=== PATIENT | female | born 1970 | race Caucasian/White ===

== ENCOUNTER → 2020-07-11 | Outpatient (CLI) | payer BC ==
--- NOTE | 2020-07-12 13:35 | NM ---
EXAMINATION TYPE: NM thyroid image w uptake DATE OF EXAM: 07/12/2020 COMPARISON: NONE HISTORY: Hyperthyroidism TECHNIQUE: Thyroid iodine uptake is calculated and images performed after the oral administration of 304 uCi 1-123 Capsule. FINDINGS: There is nonuniform distribution of activity throughout the gland, with areas of increased uptake bilaterally. The 4 hour iodine uptake is calculated at 7.2% (normal range 8-14%). The 24-hour iodine uptake is calculated at 17.3% (normal range 15-35%). IMPRESSION: 1. Inhomogenous tracer distribution with hot nodules. Findings likely represent multinodular goiter. 2. Radioactive iodine uptake at lower limits of normal.
== END | disposition home or self-care (01) ==
LOC: RADNMMAIN 08:55
PROVIDERS: ATTEND Family Medicine
DX: E04.1 Nontoxic single thyroid nodule (principal)
CPT/HCPCS: 78014; A9516

== ENCOUNTER → 2021-05-07 | Outpatient (CLI) | payer BC ==
--- NOTE | 2021-05-08 10:01 | ECHOF ---
Referral Reason:[id number] dizziness, R94.31 abnormal EKG MEASUREMENTS -------- HEIGHT: 165.1 cm WEIGHT: 79.4 kg BP: RVIDd: 3.0 cm (< 3.3) IVSd: 1.1 cm (0.6 - 1.1) LVIDd: 3.9 cm (3.9 - 5.3) LVPWd: 1.2 cm (0.6 - 1.1) IVSs: 1.6 cm LVIDs: 2.7 cm LVPWs: 1.6 cm LAESV Index (A-L): 25.35 ml/m Ao Diam: 2.7 cm (2.0 - 3.7) AV Cusp: 1.9 cm (1.5 - 2.6) LA Diam: 3.9 cm (2.7 - 3.8) MV EXCURSION: 19.315 mm (> 18.000) MV EF SLOPE: 65 mm/s (70 - 150) EPSS: 0.1 cm MV E Elvis: 0.75 m/s MV DecT: 200 ms MV A Elvis: 0.90 m/s MV E/A Ratio: 0.84 RAP: 5.00 mmHg RVSP: 28.75 mmHg FINDINGS -------- Sinus rhythm. This was a technically adequate study. The left ventricular size is normal. There is borderline concentric left ventricular hypertrophy. Overall left ventricular systolic function is normal with, an EF between 55 - 60 %. The diastolic filling pattern is normal for the age of the patient 10.71. The right ventricle is normal in size. Normal LA size by volume 22+/-6 ml/m2. The right atrial size is normal. Interatrial and interventricular septum intact. The aortic valve is trileaflet, and appears structurally normal. No aortic stenosis or regurgitation. The mitral valve is normal. No mitral regurgitation. The tricuspid valve appears structurally normal. Trace tricuspid regurgitation present. Right judith tricular systolic pressure is normal at < 35 mmHg. The right ventricular systolic pressure, as lisseth ured by Doppler, is 28.75mmHg. There is no pulmonic regurgitation present. The aortic root size is normal. Normal inferior vena cava with normal inspiratory collapse consistent with estimated right atrial pre ssure of 5 mmHg. Echo free space may represent effusion or a pericardial fat pad. There is no pericardial effusion. CONCLUSIONS -------- 1. There is borderline concentric left ventricular hypertrophy. 2. Overall left ventricular systolic function is normal with, an EF between 55 - 60 %. 3. Normal LA size by volume 22+/-6 ml/m2. 4. The aortic valve is trileaflet, and appears structurally normal. No aortic stenosis or regurgitati on. 5. Trace tricuspid regurgitation present. PUBLIC HEALTH ENGINEER: Trinity Tenorio RDCS
== END | disposition home or self-care (01) ==
LOC: RADECHMAIN 13:53
PROVIDERS: ATTEND Family Medicine
DX: I07.1 Rheumatic tricuspid insufficiency (principal)
CPT/HCPCS: 93306

== ENCOUNTER → 2021-05-11 | Outpatient (CLI) | payer BC ==
--- NOTE | 2021-05-11 21:16 | MR ---
EXAMINATION TYPE: MR brain and iac wo/w con DATE OF EXAM: 05/11/2021 COMPARISON: None HISTORY: Vertigo and right sided hearing loss CONTRAST: Performed utilizing 7.5 mL intravenous Gadavist gadolinium contrast. TECHNIQUE: Multiplanar, multiecho imaging on a 3.0 Lolly magnet is performed through the brain. Atte ntion is paid to the internal auditory canals with thin section imaging. Postcontrast imaging is per formed through the internal auditory canals. FINDINGS:Craniovertebral junction is normal. The pituitary is normal. Diffusion-weighted imaging is performed. No suspicious hyperintensity is present to suggest an acute intracranial infarct or acute ischemic area. Signal within the brain is normal.. Thin section imaging is performed through the internal auditory canals and cerebellar pontine angles. No cerebellar pontine angle masses are evident. The internal auditory canals appear normal without expansion or erosion. Postcontrast imaging was performed. No suspicious enhancement is evident within the internal audito ry canals or the included portions of the brain. IMPRESSIONS: 1. Normal internal auditory canals. 2. No suspicious abnormality to account for dizziness or hearing loss.
== END | disposition home or self-care (01) ==
LOC: RADMRIMAIN 07:28
PROVIDERS: ATTEND Family Medicine
DX: R42 Dizziness and giddiness (principal); H91.91 Unspecified hearing loss, right ear
CPT/HCPCS: 70553; A9585

== ENCOUNTER → 2021-05-23 | Outpatient (CLI) | payer BC ==
--- NOTE | 2021-05-23 10:54 | US ---
EXAMINATION TYPE: US liver DATE OF EXAM: 05/23/2021 COMPARISON: US 03/06/16 CLINICAL HISTORY: 51-year-old female Abnormal liver function R94.5. EXAM MEASUREMENTS: Liver Length: 15.3 cm Gallbladder Wall: 0.2 cm CBD: 5.8 mm Right Kidney: 12.2 x 5.9 x 4.3 cm Pancreas: Tail obscured by overlying bowel gas Liver: Partially Obscured by overlying bowel gas. Visualized portions show no gross abnormal quality . Gallbladder: No stones seen. No abnormal distention, wall thickening, or pericholecystic fluid. Evidence for sonographic Pérez's sign: No CBD: wnl Right Kidney: No hydronephrosis. Rand Cementer notes: Note of extrahepatic fat anteriorly IMPRESSION: 1. Bile duct upper limits of normal in caliber at 5.8 mm. Follow-up as clinically indicated. 2. Some limitations due to bowel gas shadowing and patient body habitus. 3. No gallstones. 4. No discrete abnormality of the visualized portions of the liver.
== END | disposition home or self-care (01) ==
LOC: RADUSWWP 07:01
PROVIDERS: ATTEND Family Medicine
DX: R94.5 Abnormal results of liver function studies (principal)
CPT/HCPCS: 76705

== ENCOUNTER 2023-04-20 19:49 | Observation (INO) | payer BC ==
[2023-04-20] MEDS ORDERED: SODIUM CHLORIDE 0.9% 1,000 ML IV STA (22:05)
--- NOTE | 2023-04-20 22:30 | ED ---
Nausea/Vomiting/Diarrhea HPI - General Chief complaint: Nausea/Vomiting/Diarrhea Stated complaint: Vomiting Time Seen by Provider: 04/20/23 22:07 Source: patient Mode of arrival: ambulatory Limitations: no limitations - History of Present Illness Initial comments: 53-year-old female with past medical history of alcohol abuse presents to the emergency department reporting hematemesis. States that she started vomiting blood yesterday. Has had 2 episodes per day. States it is coffee ground. No history of similar. Does admit to drinking a pint of alcohol a day. Last drink was yesterday evening before bedtime around 10 PM. She denies history of esophageal varices and ulcers. Does not take any blood thinners. Denies any abdominal pain. Does admit to dark stools. No history of EGDs. No other alleviating, precipitating or modifying factors - Related Data Home Medications Medication Instructions Recorded Confirmed Meclizine [Antivert] 12.5 mg PO BID PRN 03/06/16 04/25/23 Levothyroxine Sodium [Levoxyl] 100 mcg PO DAILY 04/20/23 04/25/23 atenoloL [Tenormin] 25 mg PO DAILY 04/20/23 04/25/23 Cholecalciferol [Vitamin D3 (25 50 mcg PO HS 04/25/23 04/25/23 Mcg = 1000 Iu)] Folic Acid 0.4 mg PO HS 04/25/23 04/25/23 Pantoprazole [Protonix] 40 mg PO HS 04/25/23 04/25/23 Thiamine [Vitamin B-1] 100 mg PO HS 04/25/23 04/25/23 Allergies Allergy/AdvReac Type Severity Reaction Status Date / Time No Known Allergies Allergy Verified 04/25/23 17:40 Review of Systems ROS Statement: Those systems with pertinent positive or pertinent negative responses have been documented in the HPI. ROS Other: All systems not noted in ROS Statement are negative. Past Medical History Past Medical History: Hypertension, Thyroid Disorder History of Any Multi-Drug Resistant Organisms: None Reported Additional Past Surgical History / Comment(s): cleft, rhinoplasty Past Psychological History: No Psychological Hx Reported, Anxiety, Depression Smoking Status: Never smoker Past Alcohol Use History: Daily Past Drug Use History: None Reported, Marijuana General Exam Limitations: no limitations General appearance: alert, anxious Head exam: Present: atraumatic, normocephalic, normal inspection Eye exam: Present: normal appearance, PERRL, EOMI. Absent: scleral icterus, conjunctival injection, periorbital swelling ENT exam: Present: normal exam, mucous membranes moist Neck exam: Present: normal inspection. Absent: tenderness, meningismus, lymphad enopathy Respiratory exam: Present: normal lung sounds bilaterally. Absent: respiratory distress, wheezes, rales, rhonchi, stridor Cardiovascular Exam: Present: regular rate, normal rhythm, normal heart sounds. Absent: systolic murmur, diastolic murmur, rubs, gallop, clicks GI/Abdominal exam: Present: soft, normal bowel sounds. Absent: distended, tenderness, guarding, rebound, rigid Extremities exam: Present: normal inspection, full ROM, normal capillary refill. Absent: tenderness, pedal edema, joint swelling, calf tenderness Back exam: Present: normal inspection Neurological exam: Present: alert, oriented X3, CN II-XII intact Psychiatric exam: Present: normal affect, normal mood Skin exam: Present: warm, dry, intact, normal color. Absent: rash Course Vital Signs 04/20/23 04/21/23 04/21/23 19:54 00:12 03:14 Temperature 99.1 F Pulse Rate 80 64 64 Respiratory 18 20 20 Rate Blood Pressure 152/90 146/85 137/81 O2 Sat by Pulse 96 97 95 Oximetry 04/21/23 04/21/23 04/21/23 05:53 07:35 08:14 Temperature 98.0 F Pulse Rate 57 L 74 63 Respiratory 17 18 18 Rate Blood Pressure 111/70 137/78 134/76 O2 Sat by Pulse 95 98 97 Oximetry 04/21/23 10:19 Temperature Pulse Rate 59 L Respiratory 18 Rate Blood Pressure 121/76 O2 Sat by Pulse 96 Oximetry Medical Decision Making - Medical Decision Making Was pt. sent in by a medical professional or institution (, PA, MOLECULAR BIOLOGIST, urgent care, hospital, or correction...) When possible be specific @ -No Did you speak to anyone other than the patient for history (EMS, parent, family, police, friend...)? What history was obtained from this source @ -No Did you review nursing and triage notes (agree or disagree)? Why? @ -I reviewed and agree with nursing and triage notes Were old charts reviewed (outside hosp., previous admission, EMS record, old EKG, old radiological studies, urgent care reports/EKG's, correction records)? Report findings @ -No old charts were reviewed Differential Diagnosis (chest pain, altered mental status, abdominal pain women, abdominal pain men, vaginal bleeding, weakness, fever, dyspnea, syncope, headache, dizziness, GI bleed, back pain, seizure, CVA, palpatations, mental health, musculoskeletal)? @ -Differential GI Bleed: Esophageal varices, aortoenteric fistula, Monique-Bartholomew, gastritis, peptic ulcer disease, diverticulosis, inflammatory bowel disease, hemorrhoids, fissure, colitis, malignancy, Meckels diverticulum, this is not meant to be an all- inclusive list. EKG interpreted by me (3pts min.). @ -Not completed X-rays interpreted by me (1pt min.). @ -None done CT interpreted by me (1pt min.). @ -None done U/S interpreted by me (1pt. min.). @ -None done What testing was considered but not performed or refused? (CT, X-rays, U/S, labs)? Why? @ -None What meds were considered but not given or refused? Why? @ -None Did you discuss the management of the patient with other professionals (professionals i.e. , PA, MOLECULAR BIOLOGIST, lab, RT, psych nurse, social work therapist, cover remover, teacher, homicide squad commanding officer, case worker)? Give summary @ -Spoke with alpa from [facility] who agreed to admit patient Was smoking cessation discussed for >3mins.? @ -No Was critical care preformed (if so, how long)? @ -No Were there social determinants of health that impacted care today? How? (Homelessness, low income, unemployed, alcoholism, drug addiction, transportation, low edu. Level, literacy, decrease access to med. care, residential, rehab)? @ -Patient drinks alcohol daily which likely contributes to her upper GI bleed Was there de-escalation of care discussed even if they declined (Discuss DNR or withdrawal of care, Hospice)? DNR status @ -No What co-morbidities impacted this encounter? (DM, HTN, Smoking, COPD, CAD, Cancer, CVA, ARF, Chemo, Hep., AIDS, mental health diagnosis, sleep apnea, morbid obesity)? @ -None Was patient admitted / discharged? Hospital course, mention meds given and route, prescriptions, significant lab abnormalities, going to OR and other pertinent info. @ -Upon arrival patient is placed into room 6. A thorough history and physical exam was performed. IV access is established and laboratory studies are conducted and reviewed. I did complete a rectal exam however adequate stool not obtained. Glucose 73. AST and ALTs are elevated. Hemoglobin is 14.6. She was given a dose of Protonix. Recommended admission for GI consultation for which the patient was agreeable. She has not had any episodes of hematemesis in the emergency department. She is placed on [facility] protocol. Spoke with Alpa for admission Undiagnosed new problem with uncertain prognosis? @ -Yes Drug Therapy requiring intensive monitoring for toxicity (Heparin, Nitro, Insulin, Cardizem)? @ -No Were any procedures done? @ -No Diagnosis/symptom? @ -Acute hematemesis, daily alcohol abuse, acute hypoglycemia Acute, or Chronic, or Acute on Chronic? @ -Acute Uncomplicated (without systemic symptoms) or Complicated (systemic symptoms)? @ -Complicated Side effects of treatment? @ -No Exacerbation, Progression, or Severe Exacerbation? @ -No Poses a threat to life or bodily function? How? (Chest pain, USA, VT, pneumonia, PE, COPD, DKA, ARF, appy, cholecystitis, CVA, Diverticulitis, Homicidal, Suicidal, threat to staff... and all critical care pts) @ -Yes patient presents with upper GI bleed likely secondary to alcohol abuse - Lab Data Result diagrams: 04/22/23 05:33 04/22/23 05:33 Lab Results 04/20/23 04/20/23 04/20/23 Range/Units 22:36 22:36 22:36 WBC 5.8 (3.8-10.6) k/uL RBC 4.11 (3.80-5.40) m/uL Hgb 14.6 (11.4-16.0) gm/dL Hct 42.9 (34.0-46.0) % MCV 104.4 H (80.0-100.0) fL MCH 35.4 H (25.0-35.0) pg MCHC 33.9 (31.0-37.0) g/dL RDW 12.7 (11.5-15.5) % Plt Count 182 (150-450) k/uL MPV 9.1 Neutrophils % 64 % Lymphocytes % 26 % Monocytes % 6 % Eosinophils % 2 % Basophils % 1 % Neutrophils # 3.7 (1.3-7.7) k/uL Lymphocytes # 1.5 (1.0-4.8) k/uL Monocytes # 0.3 (0-1.0) k/uL Eosinophils # 0.1 (0-0.7) k/uL Basophils # 0.0 (0-0.2) k/uL Macrocytosis Slight Sodium 135 L (137-145) mmol/L Potassium 3.8 (3.5-5.1) mmol/L Chloride 99 (98-107) mmol/L Carbon Dioxide 20 L (22-30) mmol/L Anion Gap 16 mmol/L BUN 10 (7-17) mg/dL Creatinine 0.49 L (0.52-1.04) mg/dL Est GFR (CKD-EPI)AfAm >90 (>60 ml/min/1.73 sqM) Est GFR (CKD-EPI)NonAf >90 (>60 ml/min/1.73 sqM) Glucose 73 L (74-99) mg/dL Plasma Lactic Acid Krishan 1.4 (0.7-2.0) mmol/L Calcium 8.9 (8.4-10.2) mg/dL Total Bilirubin 2.9 H (0.2-1.3) mg/dL AST 305 H (14-36) U/L ALT 157 H (4-34) U/L Alkaline Phosphatase 75 (38-126) U/L Total Protein 8.4 H (6.3-8.2) g/dL Albumin 5.0 (3.5-5.0) g/dL Lipase 120 (23-300) U/L Serum Alcohol <10 mg/dL Disposition Clinical Impression: Upper GI bleed, Alcohol abuse Disposition: ADMITTED IP TO THIS [facility] Condition: Stable Is patient prescribed a controlled substance at d/c from ED?: No Time of Disposition: 00:46 Decision to Admit Reason: Admit from EC Decision Date: 04/21/23 Decision Time: 00:46
[2023-04-20] MEDS ORDERED: PANTOPRAZOLE 40 MG/10 ML VIAL IVP STA (22:36)
[2023-04-20 22:58] LABS: Basophils % (A) 1 %; Eosinophils # (A) 0.1 k/uL (0-0.7); Eosinophils % (A) 2 %; HCT 42.9 % (34.0-46.0); HGB 14.6 gm/dL (11.4-16.0); Lymphocytes # (A) 1.5 k/uL (1.0-4.8); Lymphocytes % (A) 26 %; MCH 35.4 pg (25.0-35.0); MCHC 33.9 g/dL (31.0-37.0); MCV 104.4 fL (80.0-100.0); Macrocytosis Slight; Mean Platelet Volume 9.1; Monocytes # (A) 0.3 k/uL (0-1.0); Monocytes % (A) 6 %; Neutrophils # (A) 3.7 k/uL (1.3-7.7); Neutrophils % (A) 64 %; Platelet Count 182 k/uL (150-450); RBC 4.11 m/uL (3.80-5.40); RDW 12.7 % (11.5-15.5); WBC 5.8 k/uL (3.8-10.6)
[2023-04-21 00:26] LABS: ALT 157 U/L (4-34); AST 305 U/L (14-36); African American GFR (CKD) >90 (>60 ml/min/1.73 sqM); Alcohol <10 mg/dL; Alkaline Phosphatase 75 U/L (38-126); Anion Gap 16 mmol/L; Blood Urea Nitrogen 10 mg/dL (7-17); Calcium 8.9 mg/dL (8.4-10.2); Carbon Dioxide 20 mmol/L (22-30); Chloride 99 mmol/L (98-107); Glucose 73 mg/dL (74-99); Lipase 120 U/L (23-300); Non-African American GFR(CKD) >90 (>60 ml/min/1.73 sqM); Potassium 3.8 mmol/L (3.5-5.1); Sodium 135 mmol/L (137-145); Total Bilirubin 2.9 mg/dL (0.2-1.3); Total Protein 8.4 g/dL (6.3-8.2)
[2023-04-21] MEDS ORDERED: ONDANSETRON 4 MG/2 ML VIAL IVP PRN (00:46)
[2023-04-21] MEDS ORDERED: NALOXONE 0.4 MG/ML 1 ML VIAL IV PRN (00:46)
[2023-04-21] MEDS ORDERED: THIAMINE 100 MG/ML 2 ML VIAL IM STA (00:53)
[2023-04-21] MEDS ORDERED: LORazepam 2 MG/ML INJ IV PRN ×2 (00:53)
[2023-04-21] MEDS: LORazepam 2 MG/ML INJ IV PRN ×2 (08:10→22:40)
[2023-04-21] MEDS ORDERED: PANTOPRAZOLE 40 MG/10 ML VIAL IV SCH (09:00)
--- NOTE | 2023-04-21 11:30 | P.CONS ---
History of Present Illness - Reason for Consult Consult date: 04/21/23 Upper GI bleed Requesting physician: Verna Bertrand - Chief Complaint vomiting blood - History of Present Illness This is a pleasant 53-year-old female who presented to the emergency department yesterday evening with complaints of vomiting blood for the past 2 days noemi [email or web address] States she vomited blood twice on Thursday and twice yesterday. Thursday she stated was bright red and then turned more of a dark to coffee-ground yesterday. States she's been nauseated for the last 3 days, decreased appetite. She has a long-standing history of alcohol abuse greater than 20 years. She states she drinks 1-2 pints a day. Last time she had alcohol was on Thursday. Patient also states she's been having some dark tarry stools over the last few days duration. Denies any previous history of GI bleed. Last EGD done about 20 years ago for dysphagia. Denies any anticoagulation or NSAID use. Denies any abdominal pain. Patient denies any knowledge of cirrhosis or being told she had liver disease. Past medical history includes hypertension and hypothyroidism. Admitting labs WBC 5.8 hemoglobin 14.6 hematocrit 42 platelet count 182,000 BUN 10 creatinine 0.49 total bilirubin 2.9 AST 305 ALT 157 alkaline phosphatase 75 serum alcohol less than 10 Review of Systems REVIEW OF SYSTEMS: CARDIOPULMONARY: No chest pain or shortness of breath. Gastrointestinal: No epigastric pain, no associated abdominal pain. Nausea and vomiting, hematemesis then coffee-ground emesis. Black tarry stool last 3-4 days duration. GENITOURINARY: No dysuria or hematuria. MUSCULOSKELETAL: Reports normal range of motion. SKIN: No rashes. No jaundice. ENDOCRINE: No chills, fevers. No excessive weight gain or loss. No polydipsia or polyuria. PSYCHIATRIC: Unremarkable. NEUROLOGY: No change in mental status. Denies dizziness, headache. ENT: Vision unremarkable. CONSTITUTIONAL: No recent weight loss. No fever, chills, night sweats. Past Medical History Past Medical History: Hypertension, Thyroid Disorder History of Any Multi-Drug Resistant Organisms: None Reported Additional Past Surgical History / Comment(s): cleft, rhinoplasty Past Psychological History: No Psychological Hx Reported, Anxiety, Depression Smoking Status: Never smoker Past Alcohol Use History: Daily Past Drug Use History: None Reported, Marijuana Medications and Allergies Home Medications Medication Instructions Recorded Confirmed Type Meclizine [Antivert] 12.5 mg PO BID PRN 03/06/16 04/20/23 History Levothyroxine Sodium [Levoxyl] 100 mcg PO DAILY 04/20/23 04/20/23 History atenoloL [Tenormin] 25 mg PO DAILY 04/20/23 04/20/23 History Allergies Allergy/AdvReac Type Severity Reaction Status Date / Time No Known Allergies Allergy Verified 04/20/23 22:25 Physical Exam Vitals: Vital Signs Temp Pulse Resp BP Pulse Ox 04/21/23 08:14 63 18 134/76 97 04/21/23 07:35 98.0 F 74 18 137/78 98 04/21/23 05:53 57 L 17 111/70 95 04/21/23 03:14 64 20 137/81 95 04/21/23 00:12 64 20 146/85 97 04/20/23 19:54 99.1 F 80 18 152/90 96 Intake and Output 04/20/23 04/21/23 04/21/23 22:59 06:59 14:59 Other: Weight 77.111 kg General appearance: The patient is alert, oriented, appears in no acute distress. HET: Head is normocephalic and atraumatic. Conjunctiva pink. Sclera anicteric. Neck: Supple without lymphadenopathy. Trachea midline. Heart: S1 S2. Regular rate and rhythm. Lungs: Clear to auscultation. Abdomen: Soft, nontender, nondistended with bowel sounds. No guarding or rigidity. Skin: No rashes. No jaundice. Extremities: Normal skin color and turgor. No pedal edema. Neurological: No focal deficits. Alert and oriented x3. Results CBC & Chem 7: 04/20/23 22:36 04/20/23 22:36 Labs: Abnormal Lab Results - Last 24 Hours (Table) 04/20/23 04/20/23 Range/Units 22:36 22:36 MCV 104.4 H (80.0-100.0) fL MCH 35.4 H (25.0-35.0) pg Sodium 135 L (137-145) mmol/L Carbon Dioxide 20 L (22-30) mmol/L Creatinine 0.49 L (0.52-1.04) mg/dL Glucose 73 L (74-99) mg/dL Total Bilirubin 2.9 H (0.2-1.3) mg/dL AST 305 H (14-36) U/L ALT 157 H (4-34) U/L Total Protein 8.4 H (6.3-8.2) g/dL Assessment and Plan (1) Upper GI bleed Narrative/Plan: 53-year-old female with long-standing history of alcohol abuse over 20 years presented with hematemesis and coffee-ground emesis for the last 2 days duration. Reporting 2 episodes per day. Initial hemoglobin stable at 14.6 repeat hemoglobin pending. Denies any anticoagulation or NSAID use. Need to consider possible esophageal varices, gastritis, esophagitis, peptic ulcer disease, AVM or other possible etiologies. Patient has been nothing by mouth and will proceed with EGD for further evaluation. Continue Protonix twice a day. Current Visit: Yes Status: Acute Code(s): K92.2 - GASTROINTESTINAL HEMORRHAGE, UNSPECIFIED SNOMED Code(s): 02728295 (2) Alcohol abuse Current Visit: Yes Status: Acute Code(s): F10.10 - ALCOHOL ABUSE, UNCOMPLICATED SNOMED Code(s): 64383335 Plan: 1. Keep nothing by mouth 2. Increase Protonix to 40 mg twice a day 3. Repeat CBC, transfuse for hemoglobin less than 7 4. Antiemetics as needed 5. Patient scheduled for EGD this afternoon, procedure discussed with patient including risks and benefits. Patient willing to proceed. 6. Discuss with patient importance of alcohol abstinence. Thank you for this consultation, we will continue to follow. Dr. Lata Pizarro I agree with the dictator's note, documented as a scribe by Armida Carlton.
--- NOTE | 2023-04-21 13:03 | US ---
EXAMINATION TYPE: US liver DATE OF EXAM: 04/21/2023 COMPARISON: EKG CLINICAL INDICATION: Female, 53 years old with history of elevated LFTS; elevated LFTS TECHNIQUE: Multiple sonographic images of the right upper quadrant are obtained. FINDINGS: EXAM MEASUREMENTS: Liver Length: 18.1 cm Gallbladder Wall: .3 cm CBD: .5 cm Right Kidney: 12.0 x 3.9 x 4.3 cm HYDROE[employer]ANT MAINTAINER NOTES: Pancreas: Limited and obscured by overlying bowel gas Liver: Increased attenuation Gallbladder: No stones seen Evidence for sonographic Pérez's sign: No CBD: wnl Right Kidney: No hydronephrosis or masses seen IMPRESSION: Mild hepatomegaly with increased attenuation likely related to hepatic steatosis versus hepatocellula r disease including hepatitis.
[2023-04-21] MEDS ORDERED: SODIUM CHLORIDE 0.9% 1,000 ML IV ONE (13:35)
[2023-04-21] MEDS ORDERED: PROPOFOL 10 MG/ML 20 ML VIAL IV ONE (13:41)
[2023-04-21] MEDS ORDERED: LIDOCAINE 2% INJ 20 MG/ML (2 ML VIAL) ONE (13:41)
--- NOTE | 2023-04-21 13:51 | P.PCN ---
Date of Procedure: 04/21/23 Procedure(s) Performed: BRIEF HISTORY: Patient is a 53-year-old, pleasant, white female admitted hospital after having an episode of hematemesis yesterday. Hemoglobin is 14 g/dL. History of heavy alcohol abuse of several years duration. Scheduled for an upper endoscopy to evaluate further.. PROCEDURE PERFORMED: Esophagogastroduodenoscopy with biopsy. PREOPERATIVE DIAGNOSIS: Acute upper GI bleed. IV sedation per anesthesia. PROCEDURE: After informed consent was obtained, the patient was brought into the endoscopy unit. IV sedation was administered by Anesthesia under continuous monitoring. Initially the Olympus GIF-140 video endoscope was inserted into the mouth. Esophagus intubated without any difficulty. It was gradually advanced into the stomach and duodenum and carefully examined. The bulb and mild duodenitis and the second part of the duodenum appeared normal. The scope at this time was withdrawn to the stomach, adequately insufflated with air, and upon careful examination, mucosa of the antrum, body, had patchy areas of erythema consistent with gastritis and biopsies were done from this area. Mucosa of the cardia and the fundus appeared normal. No gastric varices seen. The scope was then withdrawn into the esophagus. The GE junction was located at 39 cm from the incisors. There was an early stricture noted in the distal esophagus and this was dilated with the passage of the scope and there was some oozing noted at the site of dilation. There was a 2 superficial erosions in the distal esophagus consistent with LA grade B reflux esophagitis. The rest of the esophagus appeared normal. There were no esophageal varices and the patient tolerated the procedure well. IMPRESSION: 1. Distal esophageal stricture with LA grade B reflux esophagitis is post dilation with the passage of scope. 2. Mild antral gastritis and duodenitis. 2. No evidence of gastric or esophageal varices RECOMMENDATIONS: The findings of this examination were discussed with the patient as well as a family. She'll be continued on Protonix 40 mg twice daily. Diet will be advanced as tolerated..
[2023-04-21] MEDS: PANTOPRAZOLE 40 MG/10 ML VIAL IV SCH (19:48)
--- NOTE | 2023-04-22 02:52 | P.HPIM ---
History of Present Illness H&P Date: 04/21/23 Chief Complaint: blood in vomit Patient is a 53-year-old female with a known history of hypertension, hypothyroidism and daily alcohol use, anxiety/depression presents ER with complaints of blood in the vomit. Patient. 2 episodes yesterday which is bright red and also coffee-ground. No prior history of GI bleed. Patient does drink 1 pint of alcohol a day. Last drink was day prior to admission. Currently patient is not on any blood thinners. No complaints of abdominal pain. No prior history of EGDs. Denies any dark stools. No cough or sputum production. No chest pain. Ultrasound liver showed mild hepatomegaly with increased attenuation likely related to hepatic steatosis versus hepatocellular disease including hepatitis. Laboratory data showed WBC 5.8 hemoglobin 14.6 and platelets 12.7, sodium 135 potassium 3.8 chloride 99 bicarb is 20 BUN 10 and creatinine 0.49 Total bilirubin level is 2.9 AST 305 ALT 157 alk phos 75 and serum marker level is less than 10. Review of Systems Constitutional: Patient denies any fever or chills . no Generalized weakness. Abdomen: Patient patient nausea and blood in vomit. No abd. pain Cardiovascular: Patient denies any chest pain or short of breath no palpitations. Respiratory: patient denied any cough . no sputum production. No shortness of breath Neurologic: Patient denied any numbness or tingling headache. Musculoskeletal: Patient denies any complaints of joint swelling or deformity. Skin: Negative Psychiatric: Negative Endocrine: No heat or cold intolerance. No recent weight gain. Genitourinary: No dysuria or hematuria. All other 14 point ROS negative except the above Past Medical History Past Medical History: Hypertension, Thyroid Disorder History of Any Multi-Drug Resistant Organisms: None Reported Additional Past Surgical History / Comment(s): cleft, rhinoplasty Past Psychological History: No Psychological Hx Reported, Anxiety, Depression Smoking Status: Never smoker Past Alcohol Use History: Daily Past Drug Use History: None Reported, Marijuana Medications and Allergies Home Medications Medication Instructions Recorded Confirmed Type Meclizine [Antivert] 12.5 mg PO BID PRN 03/06/04/20/23 History Levothyroxine Sodium [Levoxyl] 100 mcg PO DAILY 04/20/23 04/20/23 History atenoloL [Tenormin] 25 mg PO DAILY 04/20/23 04/20/23 History Pantoprazole [Protonix] 40 mg PO DAILY #30 tab 04/22/23 Rx Thiamine [Vitamin B-1] 100 mg PO DAILY #30 tab 04/22/23 Rx chlordiazePOXIDE HCl [Librium] 10 mg PO TID 3 Days #6 capsule 04/22/23 Rx Allergies Allergy/AdvReac Type Severity Reaction Status Date / Time No Known Allergies Allergy Verified 04/20/23 22:25 Physical Exam Vitals: Vital Signs Temp Pulse Resp BP Pulse Ox 04/21/23 13:25 98.0 F 65 18 137/85 98 04/21/23 10:19 59 L 18 121/76 96 04/21/23 08:14 63 18 134/76 97 04/21/23 07:35 98.0 F 74 18 137/78 98 04/21/23 05:53 57 L 17 111/70 95 04/21/23 03:14 64 20 137/81 95 04/21/23 00:12 64 20 146/85 97 04/20/23 19:54 99.1 F 80 18 152/90 96 Intake and Output 04/20/23 04/21/23 04/21/23 22:59 06:59 14:59 Other: Weight 77.111 kg PHYSICAL EXAMINATION: Patient is lying in the bed comfortably, no acute distress, awake alert and oriented.. HEENT: Normocephalic. Neck is supple. Pupils reactive. Nostrils clear. Oral cavity is moist. Neck reveals no JVD, carotid bruits, or thyromegaly. CHEST EXAMINATION: Trachea is central. Symmetrical expansion. Lung amato clear to auscultation and percussion. CARDIAC: Normal S1, S2 with no gallops. No murmurs ABDOMEN: Soft. Bowel sounds present. Nontender. No organomegaly. No abdominal bruits. Extremities: reveal no edema. No clubbing or cyanosis Neurologically awake, alert, oriented x3 with well-coordinated movements. No focal deficits noted Skin: No rash or skin lesions. Psychiatric: Coperative. Nonsuicidal, Musculoskeletal: No joint swelling or deformity. Normal range of motion. Results CBC & Chem 7: 04/22/23 05:33 04/22/23 05:33 Labs: Abnormal Lab Results - Last 24 Hours (Table) 07/17/23 07/17/23 Range/Units 22:36 22:36 MCV 104.4 H (80.0-100.0) fL MCH 35.4 H (25.0-35.0) pg Sodium 135 L (137-145) mmol/L Carbon Dioxide 20 L (22-30) mmol/L Creatinine 0.49 L (0.52-1.04) mg/dL Glucose 73 L (74-99) mg/dL Total Bilirubin 2.9 H (0.2-1.3) mg/dL AST 305 H (14-36) U/L ALT 157 H (4-34) U/L Total Protein 8.4 H (6.3-8.2) g/dL Thrombosis Risk Factor Assmnt - DVT/VTE Prophylaxis DVT/VTE Prophylaxis: Mechanical Prophylaxis ordered Assessment and Plan Assessment: Hematemesis. Possible alcoholic gastritis. s/p egd distal esophageal stricture with LA grade B reflux esophagitis is post dilation with biopsies of scope. Mild antral gastritis and duodenitis. Nausea and vomiting. Hypovolemic hyponatremia Elevated liver enzymes/alcoholic hepatitis Hyperbilirubinemia Hepatic steatosis Macrocytosis likely due to alcohol abuse Daily alcohol use 1 pint per day DVT prophylaxis SCDs Plan: Patient will be continued on IV hydration Protonix IV push twice daily. Patient was seen by GI and recommends EGD. Patient is scheduled for EGD today. EGD showed distal esophageal stricture with LA grade B reflux esophagitis is post dilation with biopsies of scope. Mild antral gastritis and duodenitis. No evidence of gastric or esophageal varices. Continue to monitor H&H. Anticipate discharge in the next 24 hours multilingual improvement. Symptomatic management for nausea. Patient was counseled extensively for alcohol cessation. Monitor for alcohol withdrawal symptoms. Time with Patient: Greater than 30
[2023-04-22] MEDS ORDERED: SODIUM CHLORIDE 0.9% 1,000 ML IV SCH (03:00)
[2023-04-22 07:33] VITALS: BP 154/95; PULSE 67; RESP 16; TEMP 97.4
[2023-04-22] MEDS: PANTOPRAZOLE 40 MG/10 ML VIAL IV SCH (07:44)
[2023-04-22 08:46] LABS: Basophils # (A) 0.04 X 10*3/uL (0.00-0.10); Basophils % (A) 0.8 %; Eosinophils # (A) 0.06 X 10*3/uL (0.04-0.35); Eosinophils % (A) 1.2 %; HCT 38.4 % (37.2-46.3); Lymphocytes % (A) 26.1 %; MCH 34.2 pg (27.0-32.0); MCHC 33.9 d/dL (32.0-37.0); MCV 101.1 FL (80.0-97.0); Mean Platelet Volume 11.9 FL (9.5-12.2); Monocytes # (A) 0.45 X 10*3/uL (0.20-1.00); NRBC Per 100 WBC 0 X 10*3/uL (0.00-0.01); Neutrophils # (A) 3.12 X 10*3/uL (1.80-7.70); Neutrophils % (A) 62.7 %; Platelet Count 147 X 10*3/uL (140-440); RDW 12.4 % (11.5-14.5); WBC 4.98 X 10*3/uL (4.50-10.00)
[2023-04-22] MEDS ORDERED: THIAMINE 100 MG TAB PO SCH (09:00)
[2023-04-22 09:40] LABS: ALT 91 U/L (8-44); AST 125 U/L (13-35); Albumin 3.8 d/dL (3.8-4.9); Albumin/Globulin Ratio 1.81 Ratio (1.60-3.17); Alkaline Phosphatase 68 U/L (41-126); BUN/Creat Ratio 10.83 Ratio (12.00-20.00); Blood Urea Nitrogen 6.5 mg/dL (9.0-27.0); Calcium 8.4 mg/dL (8.7-10.3); Chloride 103 mmol/L (96-109); Globulin 2.1 d/dL (1.6-3.3); Glucose 109 mg/dL (70-110); Potassium 3.5 mmol/L (3.5-5.5); Sodium 139 mmol/L (135-145); Total Bilirubin 1.9 mg/dL (0.3-1.2); Total Protein 5.9 d/dL (6.2-8.2)
[2023-04-22] MEDS: LORazepam 2 MG/ML INJ IV PRN (13:07)
--- NOTE | 2023-04-22 14:33 | P.PN ---
Subjective Progress Note Date: 04/22/23 Principal diagnosis: Hematemesis This is a pleasant 53-year-old female who presented to the emergency department yesterday evening with complaints of vomiting blood for the past 2 days duration. States she vomited blood twice on Thursday and twice yesterday. Thursday she stated was bright red and then turned more of a dark to coffee-ground yesterday. States she's been nauseated for the last 3 days, decreased appetite. She has a long-standing history of alcohol abuse greater than 20 years. She states she drinks 1-2 pints a day. Last time she had alcohol was on Thursday. P atient also states she's been having some dark tarry stools over the last few days duration. Denies any previous history of GI bleed. Last EGD done about 20 years ago for dysphagia. Denies any anticoagulation or NSAID use. Denies any abdominal pain. Patient denies any knowledge of cirrhosis or being told she had liver disease. Past medical history includes hypertension and hypothyroidism. Admitting labs WBC 5.8 hemoglobin 14.6 hematocrit 42 platelet count 182,000 BUN 10 creatinine 0.49 total bilirubin 2.9 AST 305 ALT 157 alkaline phosphatase 75 serum alcohol less than 10 04/22/2023 Patient seen and examined today as a follow-up. Yesterday she underwent upper endoscopy with findings of distal esophageal stricture with only grade B reflux esophagitis post dilation with passage of scope. Mild antral gastritis and duodenitis. No evidence of gastric or esophageal varices. Today patient states she is feeling better. No nausea vomiting reported. No reports of any black stool. She is tolerating her diet. Hemoglobin stable at 13.0 Objective - Vital Signs Vital signs: Vital Signs Temp 97.4 F L 04/22/23 07:00 Pulse 67 04/22/23 07:00 Resp 16 04/22/23 07:00 BP 154/95 04/22/23 07:00 Pulse Ox 98 04/22/23 07:00 FiO2 Intake & Output 04/21/23 04/22/23 04/22/23 18:59 06:59 18:59 Intake Total 220 Balance 220 Weight 77.111 kg Intake: IV 100 Oral 120 Other: # Voids 0 2 - Exam General appearance: The patient is alert, oriented, appears in no acute distress. HET: Head is normocephalic and atraumatic. Conjunctiva pink. Sclera anicteric. Neck: Supple without lymphadenopathy. Abdomen: Soft, nontender, nondistended with bowel sounds. No guarding or rigidity. Extremities: Normal skin color and turgor. No pedal edema Skin: No rashes, no jaundice Neurological: No focal deficits. Alert and oriented. - Labs CBC & Chem 7: 04/22/23 05:33 04/22/23 05:33 Assessment and Plan (1) Upper GI bleed Narrative/Plan: 53-year-old female with long-standing history of alcohol abuse over 20 years presented with hematemesis and coffee-ground emesis for the last 2 days duration. Reporting 2 episodes per day. Initial hemoglobin stable at 14.6 repeat hemoglobin pending. Denies any anticoagulation or NSAID use. Need to consider possible esophageal varices, gastritis, esophagitis, peptic ulcer disease, AVM or other possible etiologies. Patient has been nothing by mouth and will proceed with EGD for further evaluation. Continue Protonix twice a day. She underwent upper endoscopy with findings of distal esophageal stricture with only grade B reflux esophagitis post dilation with passage of scope. Mild antral gastritis and duodenitis. No evidence of gastric or esophageal varices. We been asked pulmonary Bartholomew tear versus esophagitis. However no active bleeding or old blood noted. Status: Acute Code(s): K92.2 - GASTROINTESTINAL HEMORRHAGE, UNSPECIFIED SNOMED Code(s): 54183769 (2) Alcohol abuse Status: Acute Code(s): F10.10 - ALCOHOL ABUSE, UNCOMPLICATED SNOMED Code(s): 40691229 (3) Esophageal stricture Status: Acute Code(s): K22.2 - ESOPHAGEAL OBSTRUCTION SNOMED Code(s): 26802907 Plan: 1. Continue symptomatic supportive care 2. Advance diet as tolerated 3. Continue Protonix 40 mg twice a day 4. Patient to follow-up with gastroenterology in 3-4 weeks 5. She is cleared from gastroenterology for discharge Thank you for this consultation, we will sign off at this time. Dr. Lata Pizarro I agree with the dictator's note, documented as a scribe by Armida Carlton.
--- NOTE | 2023-04-24 12:15 | P.DS ---
Providers Date of admission: 04/21/23 00:46 Expected date of discharge: 04/22/23 Attending physician: Lencho Abel Consults: 04/21/23 00:46 Consult Physician Urgent Consulting Provider: Maryan Pizarro Consult Reason/Comments: upper gi bleed Do you want consulting provider notified?: Yes Primary care physician: Seb Chester [facility] Course: Final diagnosis Hematemesis. Possible alcoholic gastritis. s/p egd distal esophageal stricture with LA grade B reflux esophagitis is post dilation with biopsies of scope. Mild antral gastritis and duodenitis. Nausea and vomiting. Improved Hypovolemic hyponatremia Elevated liver enzymes/alcoholic hepatitis Hyperbilirubinemia Hepatic steatosis Macrocytosis likely due to alcohol abuse Daily alcohol use 1 pint per day DVT prophylaxis GI prophylaxis Full code Discharge disposition Patient is being discharged in a stable condition with guarded prognosis to home. Patient will follow-up with Dr. Chester in the outpatient setting upon discharge. Patient is to follow-up with GI outpatient as scheduled. Patient to continue on Protonix and will continue Librium taper. Total time taken is greater than 35 minutes. Hospital course This is a 53-year-old female who was recently admitted with hematemesis with concerned of possible GI bleed status post EGD with GI showing distal esophageal stricture and reflux esophagitis with dilatation with multiple biopsies obtained. Mild antral gastritis with duodenitis also noted. Patient has been instructed to continue with Protonix and slowly advanced diet as tolerated with outpatient follow-up with GI. Patient encouraged to avoid all alcohol use and intake. Please refer to other consultation note for further HPI. Patient was maintained on CIWA protocol and will give a Librium taper on discharge. Currently no reports of chest pain, shortness of breath, or palpitations. Patient is afebrile. No reports of nausea or vomiting and patient is tolerating diet. Patient will be discharged home today. Guarded prognosis. Physical exam: Gen: This is a 53-year-old female who is awake, alert and oriented 3, well- developed, well-nourished HEENT: Head is atraumatic, normocephalic. Pupils equal, round. Sclerae is anicteric. NECK: Supple. No JVD. No lymphadenopathy. No thyromegaly. LUNGS: Clear to auscultation. No wheezes or rhonchi. No intercostal retractions. HEART: Regular rate and rhythm. No murmur. ABDOMEN: Soft. Bowel sounds are present. No masses. No tenderness. EXTREMITIES: No pedal edema. No calf tenderness. NEUROLOGICAL: Patient is awake, alert and oriented x3. Cranial nerves 2 through 12 are grossly intact. Please refer to medication reconciliation sheet for a list of medications. The impression and plan of care has been dictated by Opal Barton, Nurse Practitioner as directed. Dr. Daniel MD I have performed a history and examination and MDM of this patient, discussed the same with the dictator, and agree with the dictator's assessment and plan as written ,documented as a scribe. Based on total visit time, I have performed more than 50% of the visit. Patient Condition at Discharge: Stable Plan - Discharge Summary Discharge Rx Participant: Yes New Discharge Prescriptions: New Pantoprazole [Protonix] 40 mg PO DAILY #30 tab chlordiazePOXIDE HCl [Librium] 10 mg PO TID 3 Days #6 capsule Thiamine [Vitamin B-1] 100 mg PO DAILY #30 tab Continue Meclizine [Antivert] 12.5 mg PO BID PRN PRN Reason: Vertigo atenoloL [Tenormin] 25 mg PO DAILY Levothyroxine Sodium [Levoxyl] 100 mcg PO DAILY Discharge Medication List Meclizine [Antivert] 12.5 mg PO BID PRN 03/06/16 [History] Levothyroxine Sodium [Levoxyl] 100 mcg PO DAILY 04/20/23 [History] atenoloL [Tenormin] 25 mg PO DAILY 04/20/23 [History] Pantoprazole [Protonix] 40 mg PO DAILY #30 tab 04/22/23 [Rx] Thiamine [Vitamin B-1] 100 mg PO DAILY #30 tab 04/22/23 [Rx] chlordiazePOXIDE HCl [Librium] 10 mg PO TID 3 Days #6 capsule 04/22/23 [Rx] Follow up Appointment(s)/Referral(s): Maryan Pizarro MD [STAFF PHYSICIAN] - 3 Weeks Seb Chester MD [Primary Care Provider] - 1-2 days Patient Instructions/Handouts: Gastritis (DC) Activity/Diet/Wound Care/Special Instructions: Activity Limited until follow-up Follow-up with primary care provider on discharge Follow-up with GI outpatient in 1-2 weeks Continue Librium taper for the next 2-3 days and avoid all alcohol intake Continue with Protonix per GI recommendations Discharge/Stand Alone Forms: Work/School Release Discharge Disposition: HOME SELF-CARE
== END 2023-04-22 13:40 | disposition home or self-care (01) ==
LOC: EC 19:49 → 6NMEDSUR 04-21 00:46
PROVIDERS: ADMIT Hospitalist; ATTEND Hospitalist
DX: K22.2 Esophageal obstruction (principal); K92.0 Hematemesis; K29.70 Gastritis, unspecified, without bleeding; K29.80 Duodenitis without bleeding; E86.1 Hypovolemia; E87.1 Hypo-osmolality and hyponatremia; R74.8 Abnormal levels of other serum enzymes; K70.10 Alcoholic hepatitis without ascites; F10.10 Alcohol abuse, uncomplicated; E80.6 Other disorders of bilirubin metabolism; K76.0 Fatty (change of) liver, not elsewhere classified; D75.89 Other specified diseases of blood and blood-forming organs; I10 Essential (primary) hypertension; E03.9 Hypothyroidism, unspecified; F41.9 Anxiety disorder, unspecified; F32.A Depression, unspecified; Z79.890 Hormone replacement therapy; Z79.899 Other long term (current) drug therapy; Z98.890 Other specified postprocedural states
CPT/HCPCS: 96376; 96361 ×2; 96372; 96374; 96375; 99285; 86900; 86901; 88305; 80053 ×2; 83605; 83690; 85025 ×2; 86850; 80320; 76705; 43239; G0378 ×2; J2060 ×2; J3411; J2704; C9113 ×3; J2001

== ENCOUNTER 2023-04-25 16:27 | Inpatient (IN) | payer BC ==
[2023-04-25] MEDS ORDERED: THIAMINE 100 MG/ML 2 ML VIAL IM STA (17:06)
--- NOTE | 2023-04-25 17:08 | ED ---
General Adult HPI - General Chief complaint: Alcohol Stated complaint: ETOH Time Seen by Provider: 04/25/23 16:47 Source: EMS Mode of arrival: EMS Limitations: no limitations - History of Present Illness Initial comments: Dictation was produced using [employer] dictation software. please excuse any grammatical, word or spelling errors. Chief Complaint: 53-year-old female presents emergency department for alcohol withdrawals History of Present Illness: Is 53-year-old female G6 appointment and half liquor daily. 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 Hasn't tried to quit. Patient recently admitted for hematemesis. She is discharged with prescription for Librium. She states she reverted back to drinking. She refused to take the Librium because she was scared that she was given a drink and take Librium at the same time. Patient stats alcohol intake was around noon today. The ROS documented in this emergency department record has been reviewed and confirmed by me. Those systems with pertinent positive or negative responses have been documented in the HPI. All other systems are other negative and/or noncontributory. - Related Data Home Medications Medication Instructions Recorded Confirmed Meclizine [Antivert] 12.5 mg PO BID PRN 03/06/16 04/20/23 Levothyroxine Sodium [Levoxyl] 100 mcg PO DAILY 04/20/23 04/20/23 atenoloL [Tenormin] 25 mg PO DAILY 04/20/23 04/20/23 Cholecalciferol [Vitamin D3 (25 50 mcg PO HS 04/25/23 04/25/23 Mcg = 1000 Iu)] Folic Acid 0.4 mg PO HS 04/25/23 04/25/23 Pantoprazole [Protonix] 40 mg PO HS 04/25/23 04/25/23 Thiamine [Vitamin B-1] 100 mg PO HS 04/25/23 04/25/23 Allergies Allergy/AdvReac Type Severity Reaction Status Date / Time No Known Allergies Allergy Verified 04/25/23 17:40 Review of Systems ROS Statement: Those systems with pertinent positive or pertinent negative responses have been documented in the HPI. ROS Other: All systems not noted in ROS Statement are negative. Past Medical History Past Medical History: Hypertension, Thyroid Disorder Additional Past Medical History / Comment(s): vertigo etoh abuse migraine mejias History of Any Multi-Drug Resistant Organisms: None Reported Additional Past Surgical History / Comment(s): cleft, rhinoplasty Past Anesthesia/Blood Transfusion Reactions: No Reported Reaction Past Psychological History: No Psychological Hx Reported, Anxiety, Depression Smoking Status: Never smoker Past Alcohol Use History: Daily Past Drug Use History: None Reported, Marijuana General Exam - General Exam Comments Initial Comments: PHYSICAL EXAM: General Impression: Alert and oriented x3, not in acute distress HEENT: Normocephalic atraumatic, extra-ocular movements intact, pupils equal and reactive to light bilaterally, mucous membranes moist. Cardiovascular: Heart regular rate and rhythm Chest: Able to complete full sentences, no retractions, no tachypnea Abdomen: abdomen soft, non-tender, non-distended, no organomegaly Musculoskeletal: Pulses present and equal in all extremities, no peripheral edema Motor: no focal deficits noted Neurological: CN II-XII grossly intact, no focal motor or sensory deficits noted Skin: Intact with no visualized rashes Psych: Normal affect and mood Limitations: no limitations Course Vital Signs 04/25/23 16:40 Temperature 98.6 F Pulse Rate 60 Respiratory 18 Rate Blood Pressure 138/90 O2 Sat by Pulse 97 Oximetry Medical Decision Making - Medical Decision Making Was pt. sent in by a medical professional or institution (, [place], [employer], urgent care, hospital, or long term...) When possible be specific @ -No Did you speak to anyone other than the patient for history (EMS, parent, family, police, friend...)? What history was obtained from this source @ -No Did you review nursing and triage notes (agree or disagree)? Why? @ -I reviewed and agree with nursing and triage notes Were old charts reviewed (outside hosp., previous admission, EMS record, old EKG, old radiological studies, urgent care reports/EKG's, long term records)? Report findings @ -No old charts were reviewed Differential Diagnosis (chest pain, altered mental status, abdominal pain women, abdominal pain men, vaginal bleeding, musculoskeletal, weakness, fever, dyspnea, syncope, headache, dizziness, GI bleed, back pain, seizure, CVA, palpatations, mental health)? @ -not applicable EKG interpreted by me (3pts min.). @ -None done X-rays interpreted by me (1pt min.). @ -None done CT interpreted by me (1pt min.). @ -None done U/S interpreted by me (1pt. min.). @ -None done What testing was considered but not performed or refused? (CT, X-rays, U/S, labs)? Why? @ -None What meds were considered but not given or refused? Why? @ -None Did you discuss the management of the patient with other professionals (professionals i.e. Dr., [place], [employer], lab, RT, psych nurse, social security assessor, heavy equipment sales manager, teacher, telecommunications officer, counseling case manager)? Give summary @ -Discussed with hospitalist for admission Was smoking cessation discussed for >3mins.? @ -No Was critical care preformed (if so, how long)? @ -No Were there social determinants of health that impacted care today? How? (Homelessness, low income, unemployed, alcoholism, drug addiction, transportation, low edu. Level, literacy, decrease access to med. care, assisted, r ehab)? @ -No Was there de-escalation of care discussed even if they declined (Discuss DNR or withdrawal of care, Hospice)? DNR status @ -No What co-morbidities impacted this encounter? (DM, HTN, Smoking, COPD, CAD, Cancer, CVA, ARF, Chemo, Hep., AIDS, mental health diagnosis, sleep apnea, morbid obesity)? @ -None Was patient admitted / discharged? Hospital course, mention meds given and route, prescriptions, significant lab abnormalities, going to OR and other pertinent info. @ -53-year-old female presents emergency department for alcohol withdrawals. She drinks large amount of alcohol daily for several years. Vital signs stable. Patient's last alcohol intake was earlier today. Patient is motivated to quit alcohol. Patient will be admitted for treatment of alcohol withdrawal. Undiagnosed new problem with uncertain prognosis? @ -No Drug Therapy requiring intensive monitoring for toxicity (Heparin, Nitro, Insulin, Cardizem)? @ -No Were any procedures done? @ -No Diagnosis/symptom? Acute, or Chronic, or Acute on Chronic? Uncomplicated (without systemic symptoms) or Complicated (systemic symptoms)? @ -Alcohol withdrawal Side effects of treatment? @ -No Exacerbation, Progression, or Severe Exacerbation? @ -No Poses a threat to life or bodily function? How? (Chest pain, [place], [place], pneumonia, PE, COPD, DKA, ARF, appy, cholecystitis, CVA, Diverticulitis, Homicidal, Suicidal, threat to staff... and all critical care pts) @ -No - Lab Data Result diagrams: 04/25/23 17:15 04/25/23 17:15 Lab Results 04/25/23 04/25/23 Range/Units 17:15 17:15 WBC 5.0 (3.8-10.6) k/uL RBC 4.00 (3.80-5.40) m/uL Hgb 14.8 (11.4-16.0) gm/dL Hct 41.3 (34.0-46.0) % MCV 103.2 H (80.0-100.0) fL MCH 37.0 H (25.0-35.0) pg MCHC 35.8 (31.0-37.0) g/dL RDW 13.0 (11.5-15.5) % Plt Count 167 (150-450) k/uL MPV 9.4 Neutrophils % 54 % Lymphocytes % 33 % Monocytes % 5 % Eosinophils % 5 % Basophils % 1 % Neutrophils # 2.7 (1.3-7.7) k/uL Lymphocytes # 1.6 (1.0-4.8) k/uL Monocytes # 0.3 (0-1.0) k/uL Eosinophils # 0.2 (0-0.7) k/uL Basophils # 0.0 (0-0.2) k/uL Macrocytosis Slight Sodium 140 (137-145) mmol/L Potassium 3.5 (3.5-5.1) mmol/L Chloride 104 (98-107) mmol/L Carbon Dioxide 24 (22-30) mmol/L Anion Gap 12 mmol/L BUN 9 (7-17) mg/dL Creatinine 0.52 (0.52-1.04) mg/dL Est GFR (CKD-EPI)AfAm >90 (>60 ml/min/1.73 sqM) Est GFR (CKD-EPI)NonAf >90 (>60 ml/min/1.73 sqM) Glucose 86 (74-99) mg/dL Calcium 9.5 (8.4-10.2) mg/dL Magnesium 1.8 (1.6-2.3) mg/dL Serum Alcohol 88 mg/dL Disposition Clinical Impression: Alcohol withdrawal Disposition: ADMITTED IP TO THIS HOSP Condition: Fair Referrals: Seb Chester [Primary Care Provider] - 1-2 days Decision Time: 17:44
[2023-04-25 17:29] LABS: Basophils % (A) 1 %; Eosinophils # (A) 0.2 k/uL (0-0.7); Eosinophils % (A) 5 %; HCT 41.3 % (34.0-46.0); HGB 14.8 gm/dL (11.4-16.0); Lymphocytes # (A) 1.6 k/uL (1.0-4.8); Lymphocytes % (A) 33 %; MCHC 35.8 g/dL (31.0-37.0); MCV 103.2 fL (80.0-100.0); Macrocytosis Slight; Mean Platelet Volume 9.4; Monocytes # (A) 0.3 k/uL (0-1.0); Monocytes % (A) 5 %; Neutrophils # (A) 2.7 k/uL (1.3-7.7); Neutrophils % (A) 54 %; Platelet Count 167 k/uL (150-450)
[2023-04-25 17:40] LABS: African American GFR (CKD) >90 (>60 ml/min/1.73 sqM); Anion Gap 12 mmol/L; Blood Urea Nitrogen 9 mg/dL (7-17); Calcium 9.5 mg/dL (8.4-10.2); Carbon Dioxide 24 mmol/L (22-30); Chloride 104 mmol/L (98-107); Glucose 86 mg/dL (74-99); Magnesium 1.8 mg/dL (1.6-2.3); Non-African American GFR(CKD) >90 (>60 ml/min/1.73 sqM); Potassium 3.5 mmol/L (3.5-5.1); Sodium 140 mmol/L (137-145)
[2023-04-25] MEDS ORDERED: NALOXONE 0.4 MG/ML 1 ML VIAL IV PRN (17:40)
[2023-04-25 17:43] LABS: Alcohol 88 mg/dL
[2023-04-25] MEDS ORDERED: MECLIZINE 12.5 MG TAB PO PRN (19:25)
[2023-04-25] MEDS: FOLIC ACID 1 MG TAB PO SCH (20:18)
[2023-04-25] MEDS: LORazepam 2 MG/ML INJ IV PRN (20:18)
[2023-04-25] MEDS: CHOLECALCIFEROL 25 MCG (1000 IU) TABLET PO SCH (20:18)
[2023-04-25] MEDS: PANTOPRAZOLE 40 MG TABLET PO SCH (20:18)
[2023-04-25] MEDS ORDERED: THIAMINE 100 MG TAB PO SCH (21:00)
[2023-04-25] MEDS: SODIUM CHLORIDE 0.9% 1,000 ML IV SCH (21:45)
[2023-04-26] MEDS: LEVOTHYROXINE 100 MCG TAB PO SCH (06:41)
--- NOTE | 2023-04-26 07:50 | P.HPIM ---
History of Present Illness Patient is a 53-year-old female with a known history of hypertension, hypothyroidism and daily alcohol use, anxiety/depression Patient presents because she wants help quitting alcohol. She is a known alcohol abuse drinker who consumes 1 pint of liquor every day. Patient was recently discharged from this facility 04/20-04/22 She has mild chronic right upper quadrant pain for several weeks and months has been evaluated. Patient complains from some mild nausea but no vomiting. No other complaints with no chest pain or dyspnea. No urinary or GI complaints. She tolerates diet well. Patient says that she's little depressed but she definitely denies any suicidal homicidal ideation or hallucination or delusions Patient vitals are stable and patient is afebrile Patient has unremarkable INCLUDING CBC, BMP. Serum elevated 88. No liver enzymes checked. No imaging Review of Systems Review of systems CONSTITUTIONAL: No fever, no malaise, no fatigue. HEENT: No recent visual problems or hearing problems. Denied any sore throat. CARDIOVASCULAR: No orthopnea, PND, no palpitations, no syncope. PULMONARY: No shortness of breath, no cough, no hemoptysis. GASTROINTESTINAL: No diarrhea, no nausea, no vomiting, no abdominal pain. Normoactive bowel sounds. NEUROLOGICAL: No headaches, no weakness, no numbness. HEMATOLOGICAL: Denies any bleeding or petechiae. GENITOURINARY: Denies any burning micturition, frequency, or urgency. MUSCULOSKELETAL/RHEUMATOLOGICAL: Denies any joint pain, swelling, or any muscle pain. ENDOCRINE: Denies any polyuria or polydipsia. Past Medical History Past Medical History: Hypertension, Thyroid Disorder Additional Past Medical History / Comment(s): vertigo etoh abuse migraine mejias History of Any Multi-Drug Resistant Organisms: None Reported Additional Past Surgical History / Comment(s): cleft, rhinoplasty Past Anesthesia/Blood Transfusion Reactions: No Reported Reaction Past Psychological History: No Psychological Hx Reported, Anxiety, Depression Smoking Status: Former smoker Past Alcohol Use History: Daily Past Drug Use History: None Reported, Marijuana Medications and Allergies Home Medications Medication Instructions Recorded Confirmed Type Meclizine [Antivert] 12.5 mg PO BID PRN 03/06/16 04/25/23 History Levothyroxine Sodium [Levoxyl] 100 mcg PO DAILY 04/20/23 04/25/23 History atenoloL [Tenormin] 25 mg PO DAILY 04/20/23 04/25/23 History Cholecalciferol [Vitamin D3 (25 50 mcg PO HS 04/25/23 04/25/23 History Mcg = 1000 Iu)] Folic Acid 0.4 mg PO HS 04/25/23 04/25/23 History Pantoprazole [Protonix] 40 mg PO HS 04/25/23 04/25/23 History Thiamine [Vitamin B-1] 100 mg PO HS 04/25/23 04/25/23 History Allergies Allergy/AdvReac Type Severity Reaction Status Date / Time No Known Allergies Allergy Verified 04/25/23 17:40 Physical Exam Vitals: Vital Signs Temp Pulse Pulse Resp BP BP Pulse Ox 04/26/23 01:46 98.4 F 62 134/87 98 04/25/23 20:00 98.4 F 62 17 165/92 99 04/25/23 18:34 97.8 F 65 18 170/96 95 04/25/23 18:11 98.7 F 66 19 152/89 97 04/25/23 16:40 98.6 F 60 18 138/90 97 Intake and Output 04/25/23 04/26/23 04/26/23 22:59 06:59 14:59 Intake Total 240 Balance 240 Intake: Oral 240 Other: # Voids 2 Weight 77.111 kg GENERAL: The patient is alert and oriented x3, not in any acute distress. Well developed, well nourished. HEENT: Pupils are round and equally reacting to light. EOMI. No scleral icterus. No conjunctival pallor. Normocephalic, atraumatic. No pharyngeal erythema. No thyromegaly. CARDIOVASCULAR: S1 and S2 present. No murmurs, rubs, or gallops. PULMONARY: Chest is clear to auscultation, no wheezing , no crackles. ABDOMEN: Soft, nontender, nondistended, normoactive bowel sounds. No palpable organomegaly. MUSCULOSKELETAL: No joint swelling or deformity. EXTREMITIES: No cyanosis, clubbing, or pedal edema. NEUROLOGICAL: Gross neurological examination did not reveal any focal deficits. SKIN: No rashes. no petechiae. Results CBC & Chem 7: 04/25/23 17:15 04/25/23 17:15 Labs: Abnormal Lab Results - Last 24 Hours (Table) 04/25/23 Range/Units 17:15 MCV 103.2 H (80.0-100.0) fL MCH 37.0 H (25.0-35.0) pg Thrombosis Risk Factor Assmnt - Choose All That Apply Any of the Below Risk Factors Present?: Yes Each Factor Represents 1 point: Age 41-60 years, Obesity (BMI >25) Other Risk Factors: Yes Thrombosis Risk Factor Assessment Total Risk Factor Score: 2 Thrombosis Risk Factor Assessment Level: Low Risk Assessment and Plan Assessment: Alcohol use disorder at-risk of alcohol withdrawal Recent h/o Hematemesis. Possible alcoholic gastritis. s/p egd distal esophageal stricture with LA grade B reflux esophagitis is post dilation with biopsies of scope. History of Elevated liver enzymes/alcoholic hepatitis History of Hyperbilirubinemia Hepatic steatosis Macrocytosis likely due to alcohol abuse History of mild depression, no suicidal ideation Plan: Continue with [facility] protocol Thiamine. Check liver enzymes Labs and medication were reviewed.. Continue same treatment. Continue with symptomatic treatment. Resume home medication. Monitor labs and vitals. DVT and GI prophylaxis. Further recommendations as per clinical course of the patient DVT prophylaxis: Subcutaneous heparin GI Prophylaxis: Ppi Prognosis is guarded
[2023-04-26] MEDS: FAMOTIDINE 20 MG/2 ML VIAL IV SCH ×2 (08:01→21:21)
[2023-04-26] MEDS: atenoloL 25 MG TAB PO SCH (08:01)
[2023-04-26] MEDS: THIAMINE 100 MG TAB PO SCH (08:01)
[2023-04-26] MEDS: HEPARIN SODIUM,PORCINE/PF 5,000 UNIT/0.5 ML SYRINGE SQ SCH ×2 (08:01→21:17)
[2023-04-26] MEDS: LORazepam 2 MG/ML INJ IV PRN ×3 (08:16→21:19)
[2023-04-26] MEDS: FOLIC ACID 1 MG TAB PO SCH (21:20)
[2023-04-26] MEDS: CHOLECALCIFEROL 25 MCG (1000 IU) TABLET PO SCH (21:21)
[2023-04-26] MEDS: PANTOPRAZOLE 40 MG TABLET PO SCH (21:21)
[2023-04-26] MEDS: SODIUM CHLORIDE 0.9% 1,000 ML IV SCH (22:12)
[2023-04-27] MEDS: LORazepam 2 MG/ML INJ IV PRN ×5 (00:08→22:54)
[2023-04-27] MEDS: LEVOTHYROXINE 100 MCG TAB PO SCH (06:43)
[2023-04-27 09:30] LABS: ALT 98 U/L (8-44); AST 115 U/L (13-35); Albumin/Globulin Ratio 1.67 Ratio (1.60-3.17); Alkaline Phosphatase 65 U/L (41-126); BUN/Creat Ratio 11.67 Ratio (12.00-20.00); Calcium 9.2 mg/dL (8.7-10.3); Carbon Dioxide 25.5 mmol/L (21.6-31.8); Chloride 103 mmol/L (96-109); Globulin 2.4 d/dL (1.6-3.3); Glucose 96 mg/dL (70-110); Magnesium 1.8 mg/dL (1.5-2.4); Potassium 3.9 mmol/L (3.5-5.5); Sodium 139 mmol/L (135-145); Total Bilirubin 1.2 mg/dL (0.3-1.2); Total Protein 6.4 d/dL (6.2-8.2)
[2023-04-27] MEDS: atenoloL 25 MG TAB PO SCH (09:37)
[2023-04-27] MEDS: HEPARIN SODIUM,PORCINE/PF 5,000 UNIT/0.5 ML SYRINGE SQ SCH ×2 (09:43→20:51)
[2023-04-27] MEDS: THIAMINE 100 MG TAB PO SCH (09:43)
--- NOTE | 2023-04-27 14:01 | P.PN ---
Subjective Patient is a 53-year-old female with a known history of hypertension, hypothyroidism and daily alcohol use, anxiety/depression Patient presents because she wants help quitting alcohol. She is a known alcohol abuse drinker who consumes 1 pint of liquor every day. Patient was recently discharged from this facility 04/20-04/22 She has mild chronic right upper quadrant pain for several weeks and months has been evaluated. Patient complains from some mild nausea but no vomiting. No other complaints with no chest pain or dyspnea. No urinary or GI complaints. She tolerates diet well. Patient says that she's little depressed but she definitely denies any suicidal homicidal ideation or hallucination or delusions Patient vitals are stable and patient is afebrile Patient has unremarkable INCLUDING CBC, BMP. Serum elevated 88. No liver enzym es checked. No imaging 04/27/2023 Patient still feels some withdrawal symptoms today like anxious, shaky and time last. She is fully awake and oriented but there is also possible to some hallucination although not very obvious. Patient also mildly hypertensive and became mildly tachycardic with heart rate around 47 while she is on home dose of atenolol. Because of this we started the patient on Librium standing dose 20 mg 3 times a day also we change her atenolol and 2 small dose metoprolol 12.5 mg Norvasc 5 mg. Objective - Vital Signs Vital signs: Vital Signs Temp 97.9 F 04/27/23 08:00 Pulse 47 L 04/27/23 12:12 Resp 16 04/27/23 08:00 BP 152/98 04/27/23 08:00 Pulse Ox 98 04/27/23 01:31 FiO2 Intake & Output 04/26/23 04/27/23 04/27/23 18:59 06:59 18:59 Other: # Voids 3 3 - Exam GENERAL: The patient is alert and oriented x3, not in any acute distress. Well developed, well nourished. HEENT: Pupils are round and equally reacting to light. EOMI. No scleral icterus. No conjunctival pallor. Normocephalic, atraumatic. No pharyngeal erythema. No thyromegaly. CARDIOVASCULAR: S1 and S2 present. No murmurs, rubs, or gallops. PULMONARY: Chest is clear to auscultation, no wheezing , no crackles. ABDOMEN: Soft, nontender, nondistended, normoactive bowel sounds. No palpable organomegaly. MUSCULOSKELETAL: No joint swelling or deformity. EXTREMITIES: No cyanosis, clubbing, or pedal edema. NEUROLOGICAL: Gross neurological examination did not reveal any focal deficits. SKIN: No rashes. no petechiae. - Labs CBC & Chem 7: 04/25/23 17:15 04/27/23 06:21 Labs: Abnormal Lab Results - Last 24 Hours (Table) 04/27/23 Range/Units 06:21 BUN 7.0 L (9.0-27.0) mg/dL BUN/Creatinine Ratio 11.67 L (12.00-20.00) Ratio AST 115 H (13-35) U/L ALT 98 H (8-44) U/L Assessment and Plan Assessment: Alcohol use disorder at-risk of alcohol withdrawal Symptomatic bradycardia secondary to medication effect. Recent h/o Hematemesis. Possible alcoholic gastritis. s/p egd distal esophageal stricture with LA grade B reflux esophagitis is post dilation with biopsies of scope. History of Elevated liver enzymes/alcoholic hepatitis History of Hyperbilirubinemia Hepatic steatosis Macrocytosis likely due to alcohol abuse History of mild depression, no suicidal ideation Plan: Continue with [facility] protocol Thiamine. Check liver enzymes Labs and medication were reviewed.. Continue same treatment. Continue with symptomatic treatment. Resume home medication. Monitor labs and vitals. DVT and GI prophylaxis. Further recommendations as per clinical course of the patient DVT prophylaxis: Subcutaneous heparin GI Prophylaxis: Ppi Prognosis is guarded
[2023-04-27] MEDS: amLODIPine 5 MG TAB PO SCH (14:27)
[2023-04-27] MEDS: SODIUM CHLORIDE 0.9% 1,000 ML IV SCH (17:32)
[2023-04-27] MEDS: CHOLECALCIFEROL 25 MCG (1000 IU) TABLET PO SCH (20:50)
[2023-04-27] MEDS: FOLIC ACID 1 MG TAB PO SCH (20:50)
[2023-04-27] MEDS: PANTOPRAZOLE 40 MG TABLET PO SCH (20:51)
[2023-04-28] MEDS: LEVOTHYROXINE 100 MCG TAB PO SCH (06:14)
[2023-04-28] MEDS: METOPROLOL TARTRATE 12.5 MG TAB PO SCH ×2 (08:28→20:14)
[2023-04-28] MEDS: amLODIPine 5 MG TAB PO SCH (08:29)
[2023-04-28] MEDS: THIAMINE 100 MG TAB PO SCH (08:29)
[2023-04-28] MEDS: HEPARIN SODIUM,PORCINE/PF 5,000 UNIT/0.5 ML SYRINGE SQ SCH ×2 (08:30→20:16)
[2023-04-28] MEDS: LORazepam 2 MG/ML INJ IV PRN (08:40)
--- NOTE | 2023-04-28 12:23 | P.PN ---
Subjective Patient is a 53-year-old female with a known history of hypertension, hypothyroidism and daily alcohol use, anxiety/depression Patient presents because she wants help quitting alcohol. She is a known alcohol abuse drinker who consumes 1 pint of liquor every day. Patient was recently discharged from this facility 04/20-04/22 She has mild chronic right upper quadrant pain for several weeks and months has been evaluated. Patient complains from some mild nausea but no vomiting. No other complaints with no chest pain or dyspnea. No urinary or GI complaints. She tolerates diet well. Patient says that she's little depressed but she definitely denies any suicidal homicidal ideation or hallucination or delusions Patient vitals are stable and patient is afebrile Patient has unremarkable INCLUDING CBC, BMP. Serum elevated 88. No liver enzym es checked. No imaging 04/27/2023 Patient still feels some withdrawal symptoms today like anxious, shaky and time last. She is fully awake and oriented but there is also possible to some hallucination although not very obvious. Patient also mildly hypertensive and became mildly tachycardic with heart rate around 47 while she is on home dose of atenolol. Because of this we started the patient on Librium standing dose 20 mg 3 times a day also we change her atenolol and 2 small dose metoprolol 12.5 mg Norvasc 5 mg. 04/28/2023 Patient still going through withdrawal symptoms, she hears voices her understanding and voices of Cats , however patient denies depression or suicidal ideation when we asked her. She denies chest pain dyspnea or coughing. But she feels nervous uncomfortable but she thinks the medication we given her enough so far and she does not want any more medication. Patient looks calm. She is afebrile and blood pressure heart rate is better controlled after changing her regimen and to Norvasc 5 mg and Toprol 12.5, Patient remains on Librium continue with thiamine She has a good appetite Objective - Vital Signs Vital signs: Vital Signs Temp 98.3 F 04/28/23 07:54 Pulse 60 04/28/23 07:54 Resp 18 04/28/23 07:54 BP 134/86 04/28/23 07:54 Pulse Ox 94 L 04/28/23 07:54 FiO2 Intake & Output 04/27/23 04/28/23 04/28/23 18:59 06:59 18:59 Intake Total 1080 Balance 1080 Intake: Oral 1080 Other: # Voids 4 4 - Exam GENERAL: The patient is alert and oriented x3, not in any acute distress. Well developed, well nourished. HEENT: Pupils are round and equally reacting to light. EOMI. No scleral icterus. No conjunctival pallor. Normocephalic, atraumatic. No pharyngeal erythema. No thyromegaly. CARDIOVASCULAR: S1 and S2 present. No murmurs, rubs, or gallops. PULMONARY: Chest is clear to auscultation, no wheezing , no crackles. ABDOMEN: Soft, nontender, nondistended, normoactive bowel sounds. No palpable organomegaly. MUSCULOSKELETAL: No joint swelling or deformity. EXTREMITIES: No cyanosis, clubbing, or pedal edema. NEUROLOGICAL: Gross neurological examination did not reveal any focal deficits. SKIN: No rashes. no petechiae. - Labs CBC & Chem 7: 04/25/23 17:15 04/27/23 06:21 Assessment and Plan Assessment: Alcohol use disorder at-risk of alcohol withdrawal Alcoholic transaminitis with AST more than ALT Symptomatic bradycardia secondary to medication effect. Recent h/o Hematemesis. Possible alcoholic gastritis. s/p egd distal esophageal stricture with LA grade B reflux esophagitis is post dilation with biopsies of scope. History of Elevated liver enzymes/alcoholic hepatitis History of Hyperbilirubinemia, currently bilirubin is within the reference range Hepatic steatosis Macrocytosis likely due to alcohol abuse History of mild depression, no suicidal ideation Plan: Continue with [facility] protocol Thiamine. Labs and medication were reviewed.. Continue same treatment. Continue with symptomatic treatment. Resume home medication. Monitor labs and vitals. DVT and GI prophylaxis. Further recommendations as per clinical course of the patient DVT prophylaxis: Subcutaneous heparin GI Prophylaxis: Ppi Prognosis is guarded
[2023-04-28] MEDS: SODIUM CHLORIDE 0.9% 1,000 ML IV SCH (19:06)
[2023-04-28] MEDS: FOLIC ACID 1 MG TAB PO SCH (20:14)
[2023-04-28] MEDS: PANTOPRAZOLE 40 MG TABLET PO SCH (20:14)
[2023-04-28] MEDS: CHOLECALCIFEROL 25 MCG (1000 IU) TABLET PO SCH (20:14)
[2023-04-28] MEDS ORDERED: MELATONIN 3 MG TABLET PO SCH (23:00)
[2023-04-29 02:19] VITALS: BP 110/73; PULSE 62
[2023-04-29] MEDS: LEVOTHYROXINE 100 MCG TAB PO SCH (06:23)
[2023-04-29] MEDS ORDERED: SODIUM CHLORIDE 0.9% 1,000 ML IV ONE (08:40)
[2023-04-29 08:41] VITALS: RESP 19; TEMP 98
[2023-04-29] MEDS ORDERED: SODIUM CHLORIDE 0.9% 500 ML IV ONE (08:48)
[2023-04-29] MEDS ORDERED: amLODIPine 5 MG TAB PO SCH ×2 (09:00)
[2023-04-29] MEDS ORDERED: FLUoxetine HCL 10 MG CAP PO SCH (09:00)
[2023-04-29] MEDS: HEPARIN SODIUM,PORCINE/PF 5,000 UNIT/0.5 ML SYRINGE SQ SCH (10:03)
[2023-04-29] MEDS: THIAMINE 100 MG TAB PO SCH (10:06)
[2023-04-29] MEDS: METOPROLOL TARTRATE 12.5 MG TAB PO SCH (10:06)
[2023-04-29 10:18] LABS: ALT 87 U/L (8-44); AST 88 U/L (13-35); Alkaline Phosphatase 72 U/L (41-126); Bilirubin, Conjugated <0.20 mg/dL (0.20-0.40); Bilirubin,Unconjugated >0.40 mg/dL (0.20-1.00); Globulin 2.5 d/dL (1.6-3.3); Total Bilirubin 0.6 mg/dL (0.3-1.2); Total Protein 6.5 d/dL (6.2-8.2)
== END 2023-04-29 13:19 | disposition home or self-care (01) | DRG 897 ==
LOC: EC 16:27 → 4SSUR 17:40
PROVIDERS: ADMIT Hospitalist; ATTEND Hospitalist
DX: F10.929 Alcohol use, unspecified with intoxication, unspecified (principal); Z28.311 Partially vaccinated for COVID-19; I10 Essential (primary) hypertension; E03.9 Hypothyroidism, unspecified; D75.89 Other specified diseases of blood and blood-forming organs; K76.0 Fatty (change of) liver, not elsewhere classified; Z79.890 Hormone replacement therapy; Z79.899 Other long term (current) drug therapy; Z87.891 Personal history of nicotine dependence; F32.A Depression, unspecified; F41.9 Anxiety disorder, unspecified; G43.909 Migraine, unspecified, not intractable, without status migrainosus; K21.00 Gastro-esophageal reflux disease with esophagitis, without bleeding; E66.9 Obesity, unspecified; Z68.28 Body mass index [BMI] 28.0-28.9, adult
CPT/HCPCS: 36415; 80048; 80076; 80320; 83735; 85025; 96372; 99284